=== PATIENT | male | born 1980 | race Hispanic/Latino ===

== ENCOUNTER 2025-03-09 13:00 | Emergency (ER) | payer SELFPAY ==
[~2025-03-09] VITALS: Ht 177.8 cm; Wt 186.0 kg
--- NOTE | 2025-03-09 13:06 | EKG ---
[facility] Test Date: 2025-03-09 Test Time: 13:03:19 Pat Name: SUN HALL Department: [facility] Patient ID: [id number] Room: Gender: M Director Of Individual Giving: [id number] : 1980 Requested By: KYRA GRIFFITSH Order Number: [id number] Reading MD: Nanette Dubois Measurements Intervals [place] Rate: 86 P: 69 [place]: 160 QRS: 38 QRSD: 82 T: 27 QT: 373 QTc: 446 Interpretive Statements Sinus rhythm Low voltage, precordial leads No previous ECG available for comparison Electronically Signed On 03-10-2025 18:39:29 CDT by Nanette Dubois Please click the below link to view image of tracing.
[2025-03-09 13:39] LABS: BASOPHILS # (AUTO) 0.04 K/uL (0.00-0.20); BASOPHILS % (AUTO) 0.5 % (0.0-5.0); EOSINOPHILS % (AUTO) 2.4 % (0.0-8.0); HEMATOCRIT 47.5 % (42-54); IMMATURE GRANULOCYTE ABSOLUTE 0.04 K/uL (0-1); LYMPHOCYTES # (AUTO) 1.2 K/uL (1.0-4.8); LYMPHOCYTES % (AUTO) 14.4 % (21.0-51.0); MEAN CORPUSCULAR HEMOGLOBIN 29.3 pg (27.0-33.0); MEAN CORPUSCULAR HGB CONC 33.5 g/dL (32.0-36.0); MEAN CORPUSCULAR VOLUME 87.5 fL (79-99); MONOCYTES # (AUTO) 0.8 K/uL (0.1-1.0); MONOCYTES % (AUTO) 9.4 % (3.0-13.0); NEUTROPHILS # (AUTO) 6.1 K/uL (1.8-7.7); NEUTROPHILS % (AUTO) 72.8 % (40.0-77.0); PLATELET COUNT (AUTO) 202 K/uL (130-400); RED BLOOD CELL COUNT(AUTO) 5.43 MIL/uL (4.50-6.20); RED CELL DISTRIBUTION WIDTH 13.8 % (11.0-15.5); WHITE BLOOD COUNT (AUTO) 8.4 K/uL (4.8-10.8)
[2025-03-09 13:51] LABS: POTASSIUM 3.7 mmol/L (3.5-5.1)
[2025-03-09 13:52] LABS: CREATININE 0.9 mg/dL (0.5-1.3)
[2025-03-09 14:20] LABS: B-TYPE NATRIURETIC PEPTIDE < 5 pg/mL (0-100)
--- NOTE | 2025-03-09 15:10 | ERN ---
General Chief Complaint: Chest Pain Stated Complaint: CHEST PAIN Time Seen by MD: 13:00 Time Seen by Midlevel: 13:00 Source: patient History of Present Illness Initial Comments 44-year-old male presents to the emergency department for medical clearance. Patient is accompanied by PD. Patient reports chest pain initiated approximately 1 hour prior to arrival. He denies any current chest pain. Denies shortness of breath, abdominal pain, vomiting, fevers or further associated symptoms. Denies significant past medical history. Allergies: Coded Allergies: No Known Drug Allergies (Unverified Allergy, Intermediate, 03/09/25) Past Medical History Past Medical History: No Pertinent History Past Surgical History: None ROS Dictation Constitutional: Negative for fever,chills, and weight loss Eyes: Negative for injury, pain,redness, and discharge ENT: Negative for injury,pain or swelling Cardiovascular: Positive for chest pain Negative for palpitations, and edema Respiratory: Negative for shortness of breath, cough, and wheezing, Abdomen/GI: Negative for abdominal pain, nausea, vomiting, diarrhea, and constipation Back: Negative for injury and pain : Negative for painful urination, bleeding or discharge MS/Extremity: Negative for injury and deformity Skin: Negative for rash, and discoloration Neuro: Negative for headache, weakness, numbness, tingling, and seizure Psych: Negative for suicide ideation, homicidal ideation, and hallucinations Physical Exam Physical Exam Dictation General: awake, alert, no acute distress, obese Head/Face: Normocephalic, atraumatic Eyes: PERRL, EOMI, normal conjunctiva ENT: oral cavity clear, oral mucosa moist Neck: Supple, normal range of motion Cardiovascular: RRR, normal S1/S2 Respiratory: CTAB, no respiratory distress, no rales or wheezes Abdomen: Soft, non-tender, non-distended, no guarding or rebound. Skin: Warm, dry, normal turgor, no rash MS/Extremity: Pulses equal, no cyanosis, neurovascular intact, FROM Neuro: COAx4, GCS 15, strength 5/5, CN 2-12 intact, normal cerebellar exam, normal gait Psych: Normal behavior, mood, and affect normal Results Laboratory and Microbiology Lab and Micro Result Laboratory Tests Test 03/09/25 13:23 White Blood Count 8.4 K/uL (4.8-10.8) Red Blood Count 5.43 MIL/uL (4.50-6.20) Hemoglobin 15.9 g/dL (14.0-18.0) Hematocrit 47.5 % (42-54) Mean Corpuscular Volume 87.5 fL (79-99) Mean Corpuscular Hemoglobin 29.3 pg (27.0-33.0) Mean Corpuscular Hemoglobin Concent 33.5 g/dL (32.0-36.0) Red Cell Distribution Width 13.8 % (11.0-15.5) Platelet Count 202 K/uL (130-400) Mean Platelet Volume 11.2 fL (7.5-10.5) H Immature Granulocyte % (Auto) 0.5 % (0-1) Neutrophils (%) (Auto) 72.8 % (40.0-77.0) Lymphocytes (%) (Auto) 14.4 % (21.0-51.0) L Monocytes (%) (Auto) 9.4 % (3.0-13.0) Eosinophils (%) (Auto) 2.4 % (0.0-8.0) Basophils (%) (Auto) 0.5 % (0.0-5.0) Neutrophils # (Auto) 6.1 K/uL (1.8-7.7) Lymphocytes # (Auto) 1.2 K/uL (1.0-4.8) Monocytes # (Auto) 0.8 K/uL (0.1-1.0) Eosinophils # (Auto) 0.20 K/uL (0.00-0.70) Basophils # (Auto) 0.04 K/uL (0.00-0.20) Absolute Immature Granulocyte (auto 0.04 K/uL (0-1) Nucleated Red Blood Cells 0.0 % (0.0-0.19) Sodium Level 140 mmol/L (136-145) Potassium Level 3.7 mmol/L (3.5-5.1) Chloride Level 105 mmol/L (101-111) Carbon Dioxide Level 26 mmol/L (21-32) Blood Urea Nitrogen 12 mg/dL (7-18) Creatinine 0.9 mg/dL (0.5-1.3) Glomerular Filtration Rate Calc 109 mL/min (>90) Random Glucose 144 mg/dL (70-105) H Total Calcium 8.6 mg/dL (8.5-10.1) Total Creatine Kinase 161 U/L (21-232) Troponin I High Sensitivity 13 ng/L (4-75) B-Type Natriuretic Peptide < 5 pg/mL (0-100) Labs Reviewed?: Yes EKG/XRAY/US/CT/MRI EKG Comment Date: 03/09/2025 Time: 1303 Rate: 86 EKG interpretation: Sinus rhythm, low voltage precordial leads, no STEMI Reviewed by ED Attending X-RAY Comment REASON: CHEST PAIN ORDERING PHYSICIAN: KYRA GRIFFITHS PROCEDURE: CXR1VW - CHEST 1VW Exam Type: CHEST 1VW Clinical Information: CHEST PAIN Comparison: None Findings: The lungs are clear of infiltrates. The heart is enlarged. Bony and soft tissue structures of the chest wall are unremarkable. IMPRESSION: Cardiomegaly. Clear lungs. DICTATED BY: MAURA EVANS MD DATE: 03/09/25 1507 MDM MDM: Differential diagnosis: Chest pain, musculoskeletal pain, [place] Rationale: 44-year-old male presents to the emergency department for medical clearance. Patient is accompanied by PD. Patient reports chest pain initiated approximately 1 hour prior to arrival. He denies any current chest pain. Denies shortness of breath, abdominal pain, vomiting, fevers or further as sociated symptoms. Denies significant past medical history. During ED course patient continues to deny any current pain. Labs obtained CBC and chemistry are nonspecific. BNP and troponin within normal limits. Chest x- ray indicates cardiomegaly with clear lungs. Patient unable to provide urine PD requested to be discharged without the urine and drug screen. Patient and PD were educated on findings, and diagnosis. Advised to follow up with PCP. Return to the emergency department if any worsening symptoms. Patient verbalized understanding. Patient stable for discharge. There are no social concerns with this patient. I independently interpreted the test that were performed, results were reviewed by me and considered findings on radiology if ordered. Medical management and examination interpretation discussions were had by me with other qualified healthcare professionals as indicated for the patient's care. ED Course Orders Procedure Category Date Status Time Vital Signs Per CPOE 03/09/25 Transmitted Routine 13:02 B-Type Natriuretic LAB 03/09/25 Complete Peptide 13:02 Chest 1vw RAD 03/09/25 Resulted 13:02 12 Lead Ekg Tracing- EKG 03/09/25 Complete Technical 13:02 Oxygen By Nc/Pulse Ox CPOE 03/09/25 Transmitted 13:02 Maintain Iv CPOE 03/09/25 Transmitted 13:02 Iv Insertion CPOE 03/09/25 Transmitted 13:02 Cardiac Monitoring CPOE 03/09/25 Transmitted 13:02 Pulse Oximetry With CPOE 03/09/25 Transmitted Vs And Prn 13:02 Cbc With Differential LAB 03/09/25 Complete 13:02 Activity: Br W/Brp CPOE 03/09/25 Transmitted With Assist 13:02 Creatine Kinase, Total LAB 03/09/25 Complete 13:02 Troponin I High LAB 03/09/25 Complete Sensitivity 13:02 Basic Metabolic Panel LAB 03/09/25 Complete 13:02 Vital Signs Date Time Temp Pulse Resp B/P (MAP) Pulse Ox O2 Delivery O2 Flow Rate FiO2 03/09/25 15:24 98.8 80 20 161/100 97 Room Air* 0 21 03/09/25 13:03 98.8 84 20 176/114 96 Room Air 0 DX & DISP Disposition: Discharge Departure Impression: Primary Impression: Chest pain with low risk for cardiac etiology Additional Impression: Medical clearance for incarceration Condition: Stable Additional Instructions: Discharge home. Rest. Follow up with primary care DrBrandi in 24 hours. Return to the ER for any acute changes or worsening symptoms. If any medications were prescribed take as directed. Okay to continue home medications unless otherwise discussed during your visit in the emergency room today. Patient was also advised to follow-up with primary care physician in 1 to 2 days for continued monitoring. Referrals: SELF,REFERRAL (PCP) I performed the substantive portion of the visit. I have reviewed and perso shelbie made and approve the management plan that is documented in the notes by myself or the GEORGE. I acknowledge full responsibility for the patient's management plan. KYRA GRIFFITHS March 09, 2025 15:10
[2025-03-09 15:24] VITALS: BP 161/100; PULSE 80; RESP 20; TEMP 98.8; O2SAT 97
== END 2025-03-09 17:44 | disposition home or self-care (01) ==
LOC: EEVIPCON 13:00 → EDH 13:00
DX: R07.89 Other chest pain (principal)
CPT/HCPCS: 36415; 71045; 80048; 82550; 83880; 84484; 85025; 93005; 99285